=== PATIENT | female | born 1965 | race Asian ===

== ENCOUNTER 2022-09-27 16:39 | Emergency (ER) | payer MEDICAID ==
[~2022-09-27] VITALS: Ht 157.5 cm; Wt 63.5 kg
[2022-09-27 16:54] VITALS: BP 141/93
[2022-09-27] MEDS ORDERED: TETRACAINE HCL/PF 0.5% OPTH 4 ML BTL OP ONE (17:20)
[2022-09-27] MEDS ORDERED: FLUORESCEIN OPTH STRIP 1 MG OP ONE (17:20)
--- NOTE | 2022-09-27 17:36 | NUR ---
Pt bibs for episodes of blurry vision and L eye redness. Pt states she had a broken vessel in her L eye two weeks ago that started to eleviate but came back one week later. Pt states she has episodes of blurred vision without any reason. [employer] used for assessment.
[2022-09-27] MEDS ORDERED: TOMOMETER 1 DEV DEV MC ONE (17:41)
[2022-09-27 19:00] VITALS: BP 139/86
--- NOTE | 2022-09-27 19:01 | NUR ---
spoke with pt and gave order for dc. ACI given and reviewed with pt. Pt verbalized understanding and understood where to follow up. Pt aware of contact info in ACI. Pt is a/o x 4, vss, no ss of acute distress, breathing equal and unlabored, speech clear.
== END 2022-09-27 16:54 | disposition home or self-care (01) ==
LOC: MED 16:39
DX: H11.33 Conjunctival hemorrhage, bilateral (principal); R03.0 Elevated blood-pressure reading, without diagnosis of hypertension; Z91.011 Allergy to milk products; Z91.013 Allergy to seafood
CPT/HCPCS: 99284